=== PATIENT | male | born 2000 | race African-American/Black ===

== ENCOUNTER 2019-09-10 18:05 | Emergency (ER) | payer SELFPAY ==
[~2019-09-10] VITALS: Ht 177.8 cm; Wt 72.6 kg
[2019-09-10 18:15] VITALS: BP 147/84
== END 2019-09-10 20:54 | disposition home or self-care (01) ==
LOC: ER 18:11
DX: S62.315A Displaced fracture of base of fourth metacarpal bone, left hand, initial encounter for closed fracture (principal); V86.55XA Driver of 3- or 4- wheeled all-terrain vehicle (ATV) injured in nontraffic accident, initial encounter; Y93.89 Activity, other specified; Y99.8 Other external cause status; Y92.410 Unspecified street and highway as the place of occurrence of the external cause
CPT/HCPCS: 29125; 73130

== ENCOUNTER 2019-09-11 01:32 | Emergency (ER) | payer SELFPAY ==
[~2019-09-11] VITALS: Ht 177.8 cm; Wt 72.6 kg
[2019-09-11 01:40] VITALS: BP 127/70
[2019-09-11] MEDS ORDERED: ACETAMINOPHEN 500 MG TAB PO ONE (04:00)
[2019-09-11] MEDS ORDERED: IBUPROFEN 800 MG TAB PO ONE (04:00)
== END 2019-09-11 04:03 | disposition home or self-care (01) ==
LOC: ER 01:34
DX: S09.90XA Unspecified injury of head, initial encounter (principal); R55 Syncope and collapse; F41.9 Anxiety disorder, unspecified; W19.XXXA Unspecified fall, initial encounter; Y93.89 Activity, other specified; Y99.8 Other external cause status; Y92.89 Other specified places as the place of occurrence of the external cause
CPT/HCPCS: 70450